=== PATIENT | male | born 1995 | race Caucasian/White ===

== ENCOUNTER 2020-10-28 17:37 | Emergency (ER) | payer OTHER, SELFPAY ==
[2020-10-28 17:46] VITALS: BP 138/96; PULSE 87; RESP 22; TEMP 36.1; O2SAT 96; BMI 21.4
--- NOTE | 2020-10-28 18:58 | ED_ITS ---
HPI - Dental/Oral General Chief complaint: Dental/Oral Stated complaint: dental pain Time Seen by Provider: 10/28/20 18:58 History of Present Illness HPI Narrative: Patient complains of left upper molar pain, he has a decayed tooth that is chipped and now hurts more No fever no chills no difficulty breathing or swallowing, pain is mild Related Data Previous Rx's Medication Instructions Recorded hydrocodone 5 mg-acetaminophen 325 1 tab PO Q6H PRN #10 tab 10/28/20 mg tablet ibuprofen 600 mg tablet 600 mg PO Q6H PRN #20 tab 10/28/20 penicillin V potassium 500 mg 500 mg PO QID 7 Days #28 tab 10/28/20 tablet Allergies Allergy/AdvReac Type Severity Reaction Status Date / Time No Known Allergies Allergy Unverified 12/23/19 16:37 Review of Systems Review of Systems: Positive for dental pain Negatives are no fever no chills no dizziness no headache no neck pain no difficulty breathing or swallowing no swelling under the tongue no skin rashes Yes all other systems are reviewed and are negative [facility] Past Medical History Source: nursing notes reviewed Medical History (Updated 10/29/20 @ 00:01 by Jono Sy) No known health problems Social History Social History Advance Directives: No Advance Directives Information Provided: No Physical Exam Vital Signs: Vital Signs: Last Vital Signs Temp 96.9 F 10/28/20 17:46 Pulse 87 10/28/20 17:46 Resp 22 H 10/28/20 17:46 BP 138/96 H 10/28/20 17:46 Pulse Ox 96 10/28/20 17:46 Body Mass Index 21.4 General appearance no acute distress The ears are clear with normal tympanic membranes Dental exam the left upper molar is decayed and tender, there is no fluctuant gum abscess there is no drooling there is no trismus no impairment of breathing and swallowing no swelling under the tongue The pharynx is clear with no redness swelling or exudate, no drooling, voice is normal The neck is supple Respiratory no distress Skin no rashes Course Course Course Narrative: Patient is treated for dental pain and possible dental infection and is discharged She is well-appearing Discharge Plan Discharge Clinical Impression: Dental caries Patient Disposition: Home, Self-Care Additional Instructions: Follow with dentist this week as scheduled Return any concerns Prescriptions: New penicillin V potassium 500 mg tablet 500 mg PO QID 7 Days Qty: 28 RF: 0 ibuprofen 600 mg tablet 600 mg PO Q6H PRN (Reason: pain) Qty: 20 RF: 0 hydrocodone-acetaminophen 5-325 mg tablet 1 tab PO Q6H PRN (Reason: pain) Qty: 10 RF: 0 Interventions: ED Discharge Assessment Last Done: 10/28/20 19:10 Discharge Date/Time: 10/28/20 19:11
[2020-10-28] MEDS: Penicillin V Potassium 250 MG TABLET 500 MG PO (19:05)
[2020-10-28] MEDS: Ibuprofen 600 MG TABLET PO (19:06)
== END 2020-10-28 19:11 | disposition home or self-care (01) ==
PROVIDERS: Emergency Provider Emergency Medicine
DX: K02.9 Dental caries, unspecified (principal); K08.89 Other specified disorders of teeth and supporting structures
CPT/HCPCS: 99283